=== PATIENT | female | born 1995 | race Caucasian/White ===

== ENCOUNTER 2017-03-15 16:13 | Emergency (ER) | payer OTHER ==
[2017-03-15 16:47] VITALS: BP 111/51; PULSE 60; RESP 16; TEMP 98.8; O2SAT 100
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
--- NOTE | 2017-03-16 11:15 | RAD ---
PROCEDURE: Cervical Spine Radiographs. HISTORY: Pain. COMPARISON: None. FINDINGS: BONES: Vertebral bodies maintained in height. Slight reversal of the normal lordotic curvature of the cervical spine may indicate muscle spasm. Normal alignment is maintained. The atlantoaxial articulation is intact. The odontoid process is suboptimally evaluated. There is no open mouth view included in this examination. DISC SPACES: Normal. SOFT TISSUES: Normal. No prevertebral soft tissue swelling. OTHER FINDINGS: None. IMPRESSION: No evidence of fracture/ dislocation. Possible muscular spasm.
== END 2017-03-15 18:39 | disposition home or self-care (01) ==
LOC: H.ER 16:13
DX: S29.012A Strain of muscle and tendon of back wall of thorax, initial encounter (principal); X50.9XXA Other and unspecified overexertion or strenuous movements or postures, initial encounter; Y92.89 Other specified places as the place of occurrence of the external cause